=== PATIENT | female | born 1935 | race Caucasian/White ===

== ENCOUNTER 2019-01-26 19:27 | Emergency (ER) | payer MEDICARE, OTHER ==
[~2019-01-26] VITALS: Ht 157.5 cm; Wt 71.2 kg
[2019-01-26 22:06] LABS: CLARITY,URINE SL CLOUDY; COLOR,URINE YELLOW; GLUCOSE, URINE (UA) 1+ (NEGATIVE); PH,URINE 5.5 (5-9); PROTEIN,URINE NEGATIVE (NEGATIVE)
[2019-01-26 22:07] LABS: BACTERIA,URINE MODERATE /HPF; BILIRUBIN,URINE NEGATIVE (NEGATIVE); KETONES,URINE NEGATIVE (NEGATIVE); LEUKOCYTE ESTERASE ,URINE 2+ (NEGATIVE); NITRITE,URINE NEGATIVE (NEGATIVE); UROBILINOGEN,URINE 0.2 MG/DL (NORMAL)
--- NOTE | 2019-01-26 22:58 | ED General ---
General Chief Complaint: Cardiac/General Problems Stated Complaint: HIGH BP Nursing Triage Note: Ambulatory to triage. Pt c/o of feeling anxious and having high BP all day. Pt presented with a sheet of BP recordings for the day. Pt reports last BP at home was 223/108. Pt reports taking 2.5 mg of valium at approximately 1800. Pt denies chest pain, headache or dizziness. Pt reports also being concerned of having a UTI despite any overt symptoms. Pt states BS was 167 after eating earlier. Nursing Sepsis Screen: No Definite Risk History of Present Illness Date Seen by Provider: Jan 26, 2019 Time Seen by Provider: 22:32 Initial Comments 83 yo F presenting with concern about her BP readings being high at home. She also has been feeling anxious all day. She had seen Ashtyn Jason last week and had her Lisinopril dose at night increased to 20 mg and is taking 20/12.5 mg of Lisinopril/HCTZ in the morning. She is to follow up with clinic but not scheduled until February 16. She states that Ashtyn had told her if she had an infection that would also make her pressures read high and she has had some burning when her urine touches her skin so she thought she might have a UTI. She denies any other symptoms of a UTI. She has no headache, dizziness, blurred vision or vision change, chest pain, numbness or tingling, nausea, or other indication that her pressure is high. Allergies and Home Medications Allergies Coded Allergies: clarithromycin (Verified Allergy, Unknown, 01/26/19) codeine (Verified Allergy, Unknown, 01/26/19) meperidine (Verified Allergy, Unknown, 01/26/19) methylprednisolone (Verified Allergy, Unknown, 01/26/19) nalbuphine (Verified Allergy, Unknown, 01/26/19) ondansetron (Verified Allergy, Unknown, 01/26/19) Uncoded Allergies: SULFA (Allergy, Unknown, 01/26/19) Home Medications Ciprofloxacin HCl 250 Mg Tablet, 250 MG PO BID Prescribed by: MEL RIVAS on 01/26/19 8390 Patient Home Medication List Home Medication List Reviewed: Yes Review of Systems Review of Systems Constitutional: No chills, No fever; other (feeling anxious today) EENTM: no symptoms reported; No blurred vision, No eye pain Respiratory: no symptoms reported; No short of breath Cardiovascular: no symptoms reported; No chest pain, No edema Gastrointestinal: no symptoms reported; No abdominal pain Genitourinary: dysuria (burning pain when urine touches her skin) Musculoskeletal: no symptoms reported Skin: no symptoms reported Psychiatric/Neurological: Anxiety (today) Past Jsnygno-Ovmzyn-Hewjpf Hx Past Med/Social Hx: Reviewed Nursing Past Med/Soc Hx Patient Social History Alcohol Use: Denies Use Recreational Drug Use: Yes 2nd Hand Smoke Exposure: No Recent Foreign Travel: No Contact w/Someone Who Travel: No Recent Infectious Disease Expo: No Recent Hopitalizations: No Physical Abuse: No Sexual Abuse: No Mistreated: No Fear: No Past Medical History Surgeries: Yes Gallbladder, Hysterectomy Respiratory: No Cardiac: Yes Hypertension 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 oz. [id number]; BMI Method:Stated General Appearance: No Apparent Distress, WD/WN HEENT: PERRL/EOMI, Pharynx Normal Neck: Full Range of Motion, Normal Inspection, Non Tender, Supple; No Carotid Bruit Respiratory: Chest Non Tender, Lungs Clear, Normal Breath Sounds, No Accessory Muscle Use, No Respiratory Distress Cardiovascular: Regular Rate, Rhythm, No Edema, No Gallop, No JVD, Normal Peripheral Pulses Gastrointestinal: Normal Bowel Sounds, No Pulsatile Mass, Non Tender, Soft Rectal: Deferred Extremity: Normal Capillary Refill, Normal Range of Motion, Non Tender Neurologic/Psychiatric: Alert, Oriented x3, No Motor/Sensory Deficits, Normal Mood/Affect, statistics tutor II-XII Norm as Tested Skin: Normal Color, Warm/Dry Progress/Results/Core Measures Suspected Sepsis Recent Fever Within 48 Hours: No Infection Criteria Present: None New/Unexplained Altered Menta: No Sepsis Screen: No Definite Risk SIRS Temperature:97.7 Pulse: 95 Respiratory Rate: 22 Blood Pressure 188 /84 Mean: 118 Results/Orders Lab Results Laboratory Tests Test 01/26/19 21:22 Range/Units Urine Color YELLOW Urine Clarity SL CLOUDY Urine pH 5.5 5-9 Urine Specific [place] 1.010 L 1.016-1.022 Urine Protein NEGATIVE NEGATIVE Urine Glucose (UA) 1+ H NEGATIVE Urine Ketones NEGATIVE NEGATIVE Urine Nitrite NEGATIVE NEGATIVE Urine Bilirubin NEGATIVE NEGATIVE Urine Urobilinogen 0.2 NORMAL MG/DL Urine Leukocyte Esterase 2+ H NEGATIVE Urine RBC (Auto) NEGATIVE NEGATIVE Urine RBC NONE /HPF Urine WBC 10-25 H /HPF Urine Squamous Epithelial Cells 5-10 /HPF Urine Crystals NONE /LPF Urine Bacteria MODERATE H /HPF Urine Casts NONE /LPF Urine Mucus NEGATIVE /LPF Urine Culture Indicated YES My Orders Orders - MEL RIVAS MD Urinalysis (01/26/19 21:22) Urine Culture (01/26/19 21:22) Ciprofloxacin Tablet (Cipro Tablet) (01/26/19 23:00) Vital Signs/I&O 01/26/19 01/26/19 19:45 23:05 Temp 97.7 98.6 Pulse 95 82 Resp 22 18 B/P (MAP) 188/84 (118) 179/79 (112) Pulse Ox 99 97 O2 Delivery Room Air Room Air Capillary Refill : Less Than 3 Seconds Blood Pressure Mean: 118 Progress Note : Time: 22:32 Progress Note Reviewed urine results showing positive findings for UTI. Will treat with Cipro since she reports that she usually responds well to this abx and has tolerated it in the past. Counseled that with her not having signs of malignant HTN such as chest pain, dizziness, blurred vision or vision changes, headache or numbness and tingling she seems to be tolerating the elevated blood pressure for now but that we still do not want her at the high pressures for a long time. It would be best to have her get treated for the UTI and this hopefully along with her increased dosing of the BP meds will help improve her pressures. Counseled on follow up and return precautions. Departure Impression Primary Impression: Cystitis without hematuria Additional Impression: Essential hypertension Disposition: 01 HOME, SELF-CARE Condition: Stable Departure-Patient Inst. Decision time for Depature: 22:57 Referrals: SELFSHIRLEY MD (PCP) Primary Care Physician Patient Instructions: High Blood Pressure in Adults, Urinary Tract Infections in Adults Add. Discharge Instructions: Take the full course of antibiotics for your urine infection Follow up with the clinic for continued problems/concerns Return or be seen sooner if having more concerns or worsening problems with your blood pressure All discharge instructions reviewed with patient and/or family. Voiced understanding. Scripts Ciprofloxacin HCl (Ciprofloxacin HCl) 250 Mg Tablet 250 MG PO BID for UTI for 7 Days, TAB 0 Refills Prov: MEL RIVAS MD 01/26/19 MEL RIVAS MD Jan 26, 2019 22:58
[2019-01-26] MEDS ORDERED: CIPR250T3 PO (22:59)
[2019-01-26] MEDS ORDERED: CIPROFLOXACIN 500 MG (CIPRO) TABLET PO SCH (23:00)
[2019-01-26 23:05] VITALS: BP 179/79
[2019-01-26] MEDS ORDERED: FAMO40TA6 (23:26)
[2019-01-26] MEDS ORDERED: LISI1TAB8 (23:26)
[2019-01-26] MEDS ORDERED: PANT40TA3 (23:26)
== END 2019-01-26 23:05 | disposition home or self-care (01) ==
LOC: ER FS 19:30
DX: I10 Essential (primary) hypertension (principal); N30.90 Cystitis, unspecified without hematuria; K21.9 Gastro-esophageal reflux disease without esophagitis; E11.9 Type 2 diabetes mellitus without complications; F41.9 Anxiety disorder, unspecified; Z88.1 Allergy status to other antibiotic agents; Z88.5 Allergy status to narcotic agent; Z88.2 Allergy status to sulfonamides; Z88.8 Allergy status to other drugs, medicaments and biological substances; Z90.710 Acquired absence of both cervix and uterus
CPT/HCPCS: 81000; 87088; 99283

== ENCOUNTER 2020-08-10 21:15 | Emergency (ER) | payer MEDICARE, OTHER ==
[~2020-08-10] VITALS: Ht 162.6 cm; Wt 73.6 kg
[~2020-08-10 21:15] MED LIST: CIPR250T3 PO; FAMO40TA6; LISI1TAB46; PANT40TA52
[2020-08-10 21:22] VITALS: BP 177/102
--- NOTE | 2020-08-10 21:26 | ED Head Injury ---
General Chief Complaint: Head/Cervical Problems Stated Complaint: FELL,HIT HEAD Source: patient Exam Limitations: no limitations History of Present Illness Date Seen by Provider: Aug 10, 2020 Time Seen by Provider: 21:25 Initial Comments A 5-year-old female presents with a knot to the back of her head. States she was sitting down next to a piece of furniture and bumped the back of her head on the knob of a drawer. Denies any headache, dizziness, confusion or loss of consciousness. Allergies and Home Medications Allergies Coded Allergies: clarithromycin (Verified Allergy, Unknown, 01/26/19) codeine (Verified Allergy, Unknown, 01/26/19) meperidine (Verified Allergy, Unknown, 01/26/19) methylprednisolone (Verified Allergy, Unknown, 01/26/19) nalbuphine (Verified Allergy, Unknown, 01/26/19) ondansetron (Verified Allergy, Unknown, 01/26/19) Uncoded Allergies: SULFA (Allergy, Unknown, 01/26/19) Home Medications Ciprofloxacin HCl 250 Mg Tablet, 250 MG PO BID Prescribed by: MEL RIVAS on 01/26/19 3302 Patient Home Medication List Home Medication List Reviewed: Yes Review of Systems Review of Systems Constitutional: no symptoms reported; No dizziness, No fever, No malaise, No weakness Eyes: Denies Blindness, Denies Blurred Vision, Denies Pain, Denies Photophobia Ears, Nose, Mouth, Throat: no symptoms reported Musculoskeletal: No back pain, No neck pain Skin: see HPI (lump on head) Psychiatric/Neurological: Denies Headache, Denies Numbness, Denies Tingling, Denies Unable to Move Lower Ext, Denies Unable to Move Upper Ext, Denies Weakness Past Ardzhjk-Qmtqgr-Ddinzt Hx Past Med/Social Hx: Reviewed Nursing Past Med/Soc Hx Patient Social History Alcohol Use: Denies Use Recreational Drug Use: No Smoking Status: Never a Smoker 2nd Hand Smoke Exposure: No Recent Foreign Travel: No Contact w/Someone Who Travel: No Recent Hopitalizations: No Physical Abuse: No Sexual Abuse: No Mistreated: No Fear: No Seasonal Allergies Seasonal Allergies: No Past Medical History Surgeries: Yes Gallbladder, Hysterectomy Respiratory: No Cardiac: Yes Hypertension 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 oz. 71.515671jl; BMI Method:Stated General Appearance: WD/WN, no apparent distress HEENT: PERRL/EOMI, normal ENT inspection Neck: non-tender, full range of motion, supple Psychiatric: alert, oriented x 3 Crainal Nerves: normal hearing, normal speech, PERRL Coordination/Gait: normal finger to nose, normal gait Motor/Sensory: no motor deficit, no sensory deficit Skin: normal color, warm/dry, other (R parietal scalp- small contusion 2cm round, no bony crepitance) Departure Impression Primary Impression: Contusion of head Qualified Codes: S00.93XA - Contusion of unspecified part of head, initial encounter Disposition: HOME, SELF-CARE Condition: Stable Departure-Patient Inst. Decision time for Depature: 21:26 Referrals: LEIGH CONROY APRN (PCP) Primary Care Physician SHIRLEY BOLTON MD (Family) Primary Care Physician Patient Instructions: Minor Head Injury (DC) HOUSTON ROGERS DO Aug 10, 2020 21:26
== END 2020-08-10 21:28 | disposition home or self-care (01) ==
LOC: EDUNIT# 21:15 → ER FS 21:16
DX: S00.83XA Contusion of other part of head, initial encounter (principal); I10 Essential (primary) hypertension; Z88.1 Allergy status to other antibiotic agents; Z88.5 Allergy status to narcotic agent; Z88.2 Allergy status to sulfonamides; Z88.8 Allergy status to other drugs, medicaments and biological substances; W22.8XXA Striking against or struck by other objects, initial encounter
CPT/HCPCS: 99282

== ENCOUNTER 2022-06-13 07:43 | Emergency (ER) | payer MEDICARE, OTHER, MEDICAID ==
[~2022-06-13] VITALS: Ht 162 cm; Wt 66.0 kg
[2022-06-13] MEDS ORDERED: NS IV 500 ML 500 ML IV STA (08:06)
--- NOTE | 2022-06-13 08:06 | ED General ---
General Chief Complaint: Dizziness/Syncope Stated Complaint: NAUSEA Nursing Triage Note: Patient arrives via EMS at 0737 with c/o N/V and dizziness. The patient states that she woke up around 0540 this morning and felt fine until she went to the bathroom; this is when she started feeling nauseated and dizzy. She has a history of hyptertension and diabetes. The patient states that she did take her blood sugar around 0547 and it was about 130. Source of Information: Patient, EMS Exam Limitations: No Limitations History of Present Illness Date Seen by Provider: Jun 13, 2022 Time Seen by Provider: 07:47 Initial Comments 86-year-old female with past medical history of diabetes and hypertension coming in via EMS from home due to dizziness with nausea and dry heaving. She woke up around 540 and felt fine, about half an hour later when she would try to stand up she felt like the room was spinning and she felt nauseous. She says this is happened in the past multiple times and this is very similar to those episodes where she was diagnosed with vertigo. She tried taking a meclizine which has not helped as of yet. Denies any loss of vision, weakness, numbness, chest pain, shortness of breath, abdominal pain, diarrhea, recent illness, hearing changes, ringing in her ears, or any other concerns. Does not take any blood th inners. Denies any recent trauma or hitting her head. Allergies and Home Medications Allergies Coded Allergies: clarithromycin (Verified Allergy, Unknown, 01/26/19) codeine (Verified Allergy, Unknown, 01/26/19) meperidine (Verified Allergy, Unknown, 01/26/19) methylprednisolone (Verified Allergy, Unknown, 01/26/19) nalbuphine (Verified Allergy, Unknown, 01/26/19) ondansetron (Verified Allergy, Unknown, 01/26/19) Uncoded Allergies: SULFA (Allergy, Unknown, 01/26/19) Patient Home Medication List Home Medication List Reviewed: Yes Ciprofloxacin HCl (Ciprofloxacin HCl) 250 Mg Tablet, 250 MG PO BID Prescribed by: MEL RIVAS on 01/26/19 1485 Famotidine (Famotidine) 40 Mg Tablet, (Reported) Entered as Reported by: JANELLE JOSHUA on 01/26/19 8424 Lisinopril/Hydrochlorothiazide (Lisinopril-Hctz 20-12.5 mg Tab) 1 Each Tablet, (Reported) Entered as Reported by: JANELLE JOSHUA on 01/26/192325 Meclizine HCl (Meclizine HCl) 25 Mg Tablet, 25 MG PO Q8H PRN for DIZZINESS Prescribed by: VIRI FAUST on 06/13/22 08 Ondansetron (Ondansetron Odt) 4 Mg Tab.rapdis, 4 MG PO Q6H PRN for NAUSEA/VOMITING-1ST LINE Prescribed by: VIRI FAUST on 06/13/22 08 Pantoprazole Sodium (Pantoprazole Sodium) 40 Mg Tablet., (Reported) Entered as Reported by: JANELLE JOSHUA on 01/26/192325 Review of Systems Review of Systems Constitutional: No fever EENTM: No blurred vision Respiratory: No cough Cardiovascular: No chest pain Gastrointestinal: No abdominal pain Genitourinary: no symptoms reported Musculoskeletal: no symptoms reported Skin: no symptoms reported Psychiatric/Neurological: Denies Headache; Other (dizzy) Hematologic/Lymphatic: No Symptoms Reported Immunological/Allergic: no symptoms reported All Other Systems Reviewed Negative Unless Noted: Yes Past Xajmadp-Nqihhx-Agripu Hx Patient Social History Tobacco Use?: No Use of E-Cig and/or Vaping dev: No Substance use?: No Alcohol Use?: No Pt feels they are or have been: No Immunizations Up To Date First/Initial COVID19 Vaccinat: Received but date unknown Second COVID19 Vaccination Depeak: Received but date unknown Seasonal Allergies Seasonal Allergies: No Past Medical History Surgery/Hospitalization HX: None stated Surgeries: Yes Gallbladder, Hysterectomy Respiratory: No Cardiac: Yes Hypertension 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 oz. 71.210429jx; 25.00 BMI Method:Stated General Appearance: No Apparent Distress, WD/WN Eyes: Bilateral Eye Normal Inspection, Bilateral Eye PERRL, Bilateral Eye EOMI HEENT: PERRL/EOMI, TMs Normal, Normal ENT Inspection, Pharynx Normal Neck: Full Range of Motion, Normal Inspection, Non Tender, Supple Respiratory: Chest Non Tender, Lungs Clear, Normal Breath Sounds, No Accessory Muscle Use, No Respiratory Distress Cardiovascular: Regular Rate, Rhythm, No Edema, Normal Peripheral Pulses Gastrointestinal: Normal Bowel Sounds, Non Tender, Soft; No Distended, No Guarding Back: Normal Inspection, No CVA Tenderness, No Vertebral Tenderness Extremity: Normal Capillary Refill, Normal Inspection, Normal Range of Motion, Non Tender, No Calf Tenderness, No Pedal Edema Neurologic/Psychiatric: Alert, Oriented x3, No Motor/Sensory Deficits, Normal Mood/Affect, facilities maintenance technician II-XII Norm as Tested, Other (Normal itljmy-qd-zkeh, no word finding difficulties, normal visual mcgowan and visual acuity) Skin: Normal Color, Warm/Dry Lymphatic: No Adenopathy Progress/Results/Core Measures Suspected Sepsis SIRS Temperature: Pulse: Respiratory Rate: Laboratory Tests 06/13/22 07:51: White Blood Count 10.6 Blood Pressure / Mean: Laboratory Tests 06/13/22 07:51: INR Comment 0.9, Platelet Count 286 Results/Orders Lab Results Laboratory Tests Test 06/13/22 07:51 Range/Units White Blood Count 10.6 4.3-11.0 10^3/uL Red Blood Count 4.23 3.80-5.11 10^6/uL Hemoglobin 13.0 11.5-16.0 g/dL Hematocrit 39 35-52 % Mean Corpuscular Volume 93 80-99 fL Mean Corpuscular Hemoglobin 31 25-34 pg Mean Corpuscular Hemoglobin Concent 33 32-36 g/dL Red Cell Distribution Width 12.6 10.0-14.5 % Platelet Count 286 130-400 10^3/uL Mean Platelet Volume 11.1 9.0-12.2 fL Immature Granulocyte % (Auto) 0 % Neutrophils (%) (Auto) 68 42-75 % Lymphocytes (%) (Auto) 23 12-44 % Monocytes (%) (Auto) 8 0-12 % Eosinophils (%) (Auto) 0 0-10 % Basophils (%) (Auto) 1 0-10 % Neutrophils # (Auto) 7.2 1.8-7.8 10^3/uL Lymphocytes # (Auto) 2.4 1.0-4.0 10^3/uL Monocytes # (Auto) 0.9 0.0-1.0 10^3/uL Eosinophils # (Auto) 0.0 0.0-0.3 10^3/uL Basophils # (Auto) 0.1 0.0-0.1 10^3/uL Immature Granulocyte # (Auto) 0.0 0.0-0.1 10^3/uL Prothrombin Time 12.4 12.2-14.7 SEC INR Comment 0.9 0.8-1.4 Activated Partial Thromboplast Time 26 24-35 SEC My Orders Orders - VIRI FAUST MD Cbc With Automated Diff (06/13/22 08:06) Comprehensive Metabolic Panel (06/13/22 08:06) Magnesium (06/13/22 08:06) Protime With Inr (06/13/22 08:06) Partial Thromboplastin Time (06/13/22 08:06) Metoclopramide Injection (Reglan Injecti (06/13/22 08:15) Diphenhydramine Injection (Benadryl Inje (06/13/22 08:15) Ns Iv 500 Ml (Sodium Chloride 0.9%) (06/13/22 08:06) Medications Given in ED Current Medications Medications Dose Ordered Sig/Marina Route Start Time Stop Time Status Last Admin Dose Admin Diphenhydramine HCl 12.5 mg ONCE ONCE IVP 06/13/22 08:15 06/13/22 08:16 DC 06/13/22 08:21 12.5 MG Metoclopramide HCl 10 mg ONCE ONCE IVP 06/13/22 08:15 06/13/22 08:16 DC 06/13/22 08:20 10 MG Vital Signs/I&O 06/13/22 07:43 Temp 36.4 Pulse 91 Resp 16 B/P (MAP) 166/70 (102) Pulse Ox 95 O2 Delivery Room Air Capillary Refill : Progress Note : Progress Note 86-year-old female with above history coming in due to dizziness. ABCs were intact and vitals were stable on presentation. Comprehensive neuro exam normal including an NIH of 0. HINTS exam pointed to peripheral cause. Symptoms were very extreme with any movement and then quickly went away completely when she stopped moving. Dolphin-Hallpike maneuver was positive, but due to patient's age she was not really able to tolerate the Maren maneuver. An IV was placed and she was given a gentle bolus of fluids, metoclopramide, and 12 and half milligrams of Benadryl since she has already taken meclizine. EMS gave her Zofran prior to arrival. Her symptoms nearly completely resolved. I personally witnessed her walking around the room without difficulty. I believe she is stable for discharge with outpatient follow-up. She was sent home with strict return precautions Departure Impression Primary Impression: Vertigo Disposition: HOME, SELF-CARE Condition: Stable Departure-Patient Inst. Decision time for Depature: 08:52 Referrals: LEIGH CONROY APRN (PCP) Primary Care Physician [facility] [place] (Family) Primary Care Physician SOLOMON LYNN MD Patient Instructions: Vertigo (a Type of Dizziness) (DC) Add. Discharge Instructions: You likely have what is called BPPV. This is a type of vertigo that causes the dizziness you are feeling. It's caused by a problem in your ear. You can take the meclizine as needed. Nausea medicines were also sent to your pharmacy. If problems persist you can follow up with Dr. Lynn in [place], who specializes in ear problems. Scripts Ondansetron (Ondansetron Odt) 4 Mg Tab.rapdis 4 MG PO Q6H PRN for NAUSEA/VOMITING-1ST LINE for 5 Days, #20 TAB Prov: VIRI FAUST MD 06/13/22 Meclizine HCl (Meclizine HCl) 25 Mg Tablet 25 MG PO Q8H PRN for DIZZINESS for 7 Days, #21 TAB Prov: VIRI FAUST MD 06/13/22 VIRI FAUST MD Jun 13, 2022 08:06
[2022-06-13 08:14] LABS: BASOPHILS # (AUTO) 0.1 10^3/uL (0.0-0.1); BASOPHILS % (AUTO) 1 % (0-10); EOSINOPHILS % (AUTO) 0 % (0-10); HEMATOCRIT 39 % (35-52); LYMPHOCYTES # (AUTO) 2.4 10^3/uL (1.0-4.0); LYMPHOCYTES % (AUTO) 23 % (12-44); MEAN CORPUSCULAR HEMOGLOBIN 31 pg (25-34); MEAN CORPUSCULAR HGB CONC 33 g/dL (32-36); MEAN CORPUSCULAR VOLUME 93 fL (80-99); MEAN PLATELET VOLUME 11.1 fL (9.0-12.2); MONOCYTES # (AUTO) 0.9 10^3/uL (0.0-1.0); MONOCYTES % (AUTO) 8 % (0-12); NEUTROPHILS # (AUTO) 7.2 10^3/uL (1.8-7.8); NEUTROPHILS % (AUTO) 68 % (42-75); PLATELET COUNT 286 10^3/uL (130-400); WHITE BLOOD COUNT 10.6 10^3/uL (4.3-11.0)
[2022-06-13] MEDS ORDERED: diphenhydrAMINE 50 MG/ML INJ (BENADRYL) IVP ONE (08:15)
[2022-06-13] MEDS ORDERED: METOCLOPRAMIDE INJ 10 MG/2 ML (REGLAN) IVP ONE (08:15)
[2022-06-13] MEDS ORDERED: MECL-149 PO (08:26)
[2022-06-13] MEDS ORDERED: ONDA4TAB11 PO (08:26)
[2022-06-13 08:30] LABS: INR 0.9 (0.8-1.4); PROTHROMBIN TIME PATIENT 12.4 SEC (12.2-14.7)
[2022-06-13 08:53] LABS: CALCIUM 9.3 MG/DL (8.5-10.1); CREATININE SERUM 1.19 MG/DL (0.60-1.30); MAGNESIUM 1.8 MG/DL (1.6-2.4); POTASSIUM 3.6 MMOL/L (3.6-5.0)
[2022-06-13 08:54] LABS: BILIRUBIN,TOTAL 0.4 MG/DL (0.1-1.0)
[2022-06-13 09:03] VITALS: BP 155/77
== END 2022-06-13 09:03 | disposition home or self-care (01) ==
LOC: EDUNIT# 07:43 → ER FS 07:44
DX: R42 Dizziness and giddiness (principal); R11.0 Nausea
CPT/HCPCS: 36415; 80053; 83735; 85025; 85610; 85730; 99283